=== PATIENT | female | born 1995 | race Caucasian/White ===

== ENCOUNTER 2016-02-27 18:22 | Emergency (ER) | payer MEDICAID ==
[2016-02-27 18:56] LABS: % IMMATURE GRANULYOCYTES 0.5 % (0.0-1.1); ABSOLUTE IMMATURE GRANULOCYTES 0.06 10^3/uL (0.00-0.10); ADD DIFF? NO; ADD MORPH? NO; ADD SCAN? NO; ATYPICAL LYMPHOCYTE FLAG 0 (0-99); FRAGMENT RBC FLAG 0 (0-99); HEMATOCRIT 43.4 % (38.0-47.0); HEMOGLOBIN 14.4 g/dL (12.6-16.3); LEFT SHIFT FLG 0 (0-99); LIPEMIA HEMOLYSIS FLAG 80 (0-99); MEAN CELL HEMOGLOBIN 28.3 pg (27.9-34.1); MEAN CELL HEMOGLOBIN CONCENTR. 33.2 g/dL (32.4-36.7); MEAN CELL VOLUME 85.4 fL (81.5-99.8); MEAN PLATELET VOLUME 10.3 fL (8.7-11.7); PLATELET CLUMPS FLAG 0 (0-99); PLATELET COUNT 324 10^3/uL (150-400); RED BLOOD CELL COUNT 5.08 10^6/uL (4.18-5.33); RED CELL DISTRIBUTION WIDTH 13.5 % (11.5-15.2)
--- NOTE | 2016-02-27 19:02 | EDPHY ---
H & P Smoking Status: Never smoked Time Seen by Provider: 02/27/16 18:31 HPI/ROS: CHIEF COMPLAINT: Auditory hallucinations, SI. HISTORY OF PRESENT ILLNESS: This is a 20-year-old female with a history of depression, anxiety, bipolar type II, and paranoid delusions presenting voluntarily with her mother. Per mother, last night while watching TV she was expressing SI with statements such as "It's all over now." She has had recent auditory hallucinations and hearing voices. She reports hearing 2 different voices in her head but cannot hear exactly what they say. She has also had severe manic and depressive episodes, which her mother describes as sleeping for 24-36 hours at a time and then being energetic and unable to sleep for 3-4 days. She denies medication changes. She denies current SI or self-harm. She denies drug or alcohol use. REVIEW OF SYSTEMS: A complete 10-point review of systems was performed and is negative except for those items mentioned in the HPI. (Micaela Ford) Past Medical/Surgical History: Depression, anxiety, migraines, paranoid delusions. (Micaela Ford) Social History: No drug or alcohol use. Here with mother. (Micaela Ford) Physical Exam: General Appearance: Alert, no distress Eyes: Pupils equal and round, no conjunctival pallor or injection ENT, Mouth: Mucous membranes moist Neck: Normal inspection Respiratory: Lungs are clear to auscultation Cardiovascular: Regular rate and rhythm Gastrointestinal: Abdomen is soft and non- tender Neurological: A&O, nonfocal, normal gait Skin: Warm and dry, no rash Extremities: Nontender, no pedal edema Psychiatric: Mood and affect normal (Micaela Ford) Constitutional: Initial Vital Signs Temperature (C) 37 C 02/27/16 18:25 Heart Rate 109 H 02/27/16 18:25 Respiratory Rate 18 02/27/16 18:25 Blood Pressure 149/98 H 02/27/16 18:25 O2 Sat (%) 97 02/27/16 18:25 O2 Delivery Mode Room Air Allergies/Adverse Reactions: meperidine HCl [From Demerol] Allergy (Verified 02/27/16 18:23) promethazine HCl [From Phenergan] Allergy (Verified 02/27/16 18:23) Home Medications: Medication Instructions Recorded Naproxen 04/12/13 Abilify 02/27/16 LaMICtal 02/27/16 Neurontin 300 MG (*) 02/27/16 SUMAtriptan 02/27/16 Medical Decision Making ED Course/Re-evaluation: 11pm--signed over to Dr. Hsieh at shift change. Mental health eval now. (LilianaMicaela) 12:35 a.m.- I received sign-out on this patient from Dr. Ford at approximately 11:00 p.m.. She was stable during my shift. She was evaluated by the mental health worker who feel she is safe for outpatient management and treatment. He has made referrals for therapy in for her to see her outpatient psychiatrist soon. She has been given information for other resources including the walk-in clinic. She will be discharged home. (Rosetta Hsieh) - Data Points Laboratory Results: Laboratory Results 02/27/16 18:45 02/27/16 18:45 02/27/16 02/27/16 19:30 18:45 WBC 10.95 H 10^3/uL (3.80-9.50) RBC 5.08 10^6/uL (4.18-5.33) Hgb 14.4 g/dL (12.6-16.3) Hct 43.4 % (38.0-47.0) MCV 85.4 fL (81.5-99.8) MCH 28.3 pg (27.9-34.1) MCHC 33.2 g/dL (32.4-36.7) RDW 13.5 % (11.5-15.2) Plt Count 324 10^3/uL (150-400) MPV 10.3 fL (8.7-11.7) Neut % (Auto) 63.9 % (39.3-74.2) Lymph % (Auto) 30.2 % (15.0-45.0) [place] % (Auto) 3.7 L % (4.5-13.0) Eos % (Auto) 1.2 % (0.6-7.6) Baso % (Auto) 0.5 % (0.3-1.7) Nucleat RBC Rel Count 0.0 % (0.0-0.2) Absolute Neuts (auto) 6.99 H 10^3/uL (1.70-6.50) Absolute Lymphs (auto) 3.31 H 10^3/uL (1.00-3.00) Absolute Monos (auto) 0.41 10^3/uL (0.30-0.80) Absolute Eos (auto) 0.13 10^3/uL (0.03-0.40) Absolute Basos (auto) 0.05 10^3/uL (0.02-0.10) Absolute Nucleated RBC 0.00 10^3/uL (0-0.01) Immature Gran % 0.5 % (0.0-1.1) Immature Gran # 0.06 10^3/uL (0.00-0.10) Sodium 142 mEq/L (134-144) Potassium 4.1 mEq/L (3.5-5.2) Chloride 106 mEq/L (97-110) Carbon Dioxide 25 mEq/l (22-31) Anion Gap 11 mEq/L (8-16) BUN 17 mg/dL (7-23) Creatinine 0.8 mg/dL (0.6-1.0) Estimated GFR > 60 Glucose 82 mg/dL (70-100) Calcium 9.5 mg/dL (8.5-10.4) Urine Opiates Screen NEGATIVE (NEGATIVE) Urine Barbiturates NEGATIVE (NEGATIVE) Ur Phencyclidine Scrn NEGATIVE (NEGATIVE) Ur Amphetamine Screen NEGATIVE (NEGATIVE) U Benzodiazepines Scrn NEGATIVE (NEGATIVE) Urine Cocaine Screen NEGATIVE (NEGATIVE) U Marijuana (THC) Screen NEGATIVE (NEGATIVE) Ethyl Alcohol < 10 mg/dL (0-10) Departure - Departure Disposition: Home, Routine, Self-Care Clinical Impression: Auditory hallucinations, Depression Condition: Good Instructions: Depression (ED) Referrals: IN STATE,. [Primary Care Provider] - As per Instructions Report Scribed for: Micaela Ford Report Scribed by: Jose Harvey Date of Report: 02/27/16 Time of Report: 18:33 Physician Review and Approval Statement: 02/27/16 18:33 Portions of this note were transcribed by a medical technologist hematology. I personally performed a history, physical exam, medical decision making, and confirmed accuracy of information the transcribed note. (Micaela Ford)
[2016-02-27 19:26] LABS: ANION GAP 11 mEq/L (8-16); CALCIUM 9.5 mg/dL (8.5-10.4); CARBON DIOXIDE 25 mEq/l (22-31); CHLORIDE 106 mEq/L (97-110); CREATININE 0.8 mg/dL (0.6-1.0); ETHANOL SERUM < 10 mg/dL (0-10); GLOMERULAR FILTRATION RATE > 60; GLUCOSE 82 mg/dL (70-100); POTASSIUM 4.1 mEq/L (3.5-5.2); SODIUM 142 mEq/L (134-144)
[2016-02-27 23:05] VITALS: RESP 14
[2016-02-28 01:10] VITALS: BP 139/96; PULSE 108; TEMP 97.7; O2SAT 96
== END 2016-02-28 01:09 | disposition home or self-care (01) ==
DX: R44.0 Auditory hallucinations (principal); F32.9 Major depressive disorder, single episode, unspecified
CPT/HCPCS: 80305; G0480